=== PATIENT | male | born 1995 | race African-American/Black ===

== ENCOUNTER 2020-03-13 05:21 | Inpatient (IN) ==
[2020-03-13] MEDS ORDERED: DIPHTHERIA/TETANUS ADULT VACCINE 0.5 ML SYRINGE IM ONE (05:34)
[2020-03-13] MEDS ORDERED: ONDANSETRON 4 MG/2 ML VIAL IV ONE (06:22)
[2020-03-13] MEDS ORDERED: SODIUM CHLORIDE 0.9% 1,000 ML IV STA ×2 (06:22→07:36)
[2020-03-13] MEDS ORDERED: DIPH/TET/ACEL PERT BOOSTER VACCINE 0.5 ML VIAL IM ONE (06:22)
[2020-03-13] MEDS ORDERED: MORPHINE 4 MG/1 ML VIAL IV ONE (06:22)
[2020-03-13] MEDS ORDERED: LIDOCAINE MPF 1% /EPI 30 ML VIAL ONE (06:30)
[2020-03-13 06:38] LABS: INR 1.1; PT Patient Result 11.4 SECS (9.8-11.9)
[2020-03-13 07:06] LABS: Alanine Aminotransferase 20 U/L (16-61); Albumin 4.3 G/DL (3.4-5.0); Alkaline Phosphatase 47 U/L (45-117); Aspartate Amino Transferase 17 U/L (0-37); Blood Urea Nitrogen 12 MG/DL (7-18); Calcium 9.2 MG/DL (8.5-10.1); Carbon Dioxide 24 MMOL/L (21-32); Estimated Glom Filtration Rate 92 ML/MIN; Glucose 92 MG/DL (74-106); Osmolality,Calculated 274.7 MOS/KG (273-304); Potassium 4.2 MMOL/L (3.5-5.1); Sodium 138 MMOL/L (136-145); Troponin I < 0.015 NG/ML (0.00-0.045)
[2020-03-13 07:07] LABS: Basophils % 0.2 % (0.0-0.8); Eosinophils % 0.2 % (0.00-10.9); Hematocrit 47.8 VOL% (42.0-52.0); Immature Granulocytes % 0.5 %; Immature Granulocytes Absolute 0.09 #; Lymphocytes % 5.9 % (21.2-54.2); Mean Corpuscular HGB Conc 31.4 GM/DL (32-36); Mean Corpuscular Volume 92.3 FL (87-102); Mean Platelet Volume 12.5 FL (9.6-12.0); Monocytes % 6.7 % (1.7-12.7); Neutrophils % 86.5 % (38.7-73.9); Platelet Count 190 T/CUMM (130-400); Red Blood Count 5.18 MC/CUMM (3.8-5.5); Red Cell Distribution Width 14.7 % (9.3-17.3); White Blood Count 16.4 T/CUMM (4-12)
[2020-03-13 07:29] LABS: Platelet Estimate Adequate
[2020-03-13] MEDS ORDERED: BISACODYL 5 MG TABLET PO PRN (08:44)
[2020-03-13] MEDS ORDERED: ALBUTEROL/IPRATROPIUM 3 ML NEB RESP TX PRN (08:44)
[2020-03-13] MEDS ORDERED: IBUPROFEN 400 MG TABLET PO PRN (08:44)
[2020-03-13] MEDS ORDERED: ONDANSETRON 4 MG/2 ML VIAL IV PRN (08:44)
[2020-03-13] MEDS: PANTOPRAZOLE 40 MG TABLET PO SCH (11:40)
[2020-03-13] MEDS: LACTATED RINGERS 1,000 ML IV SCH (11:49)
[2020-03-13] MEDS: KETOROLAC 10 MG TABLET PO PRN (21:05)
[2020-03-14] MEDS: LACTATED RINGERS 1,000 ML IV SCH ×3 (00:30→16:37)
[2020-03-14] MEDS: HYDROmorphone 2 MG/1 ML VIAL IV PRN ×3 (03:42→16:38)
[2020-03-14] MEDS: KETOROLAC 10 MG TABLET PO PRN ×2 (04:33→12:38)
[2020-03-14 07:06] LABS: Basophils % 0.2 % (0.0-0.8); Eosinophils % 0.4 % (0.00-10.9); Hematocrit 42.3 VOL% (42.0-52.0); Immature Granulocytes % 0.5 %; Immature Granulocytes Absolute 0.05 #; Lymphocytes # 1.7 10*3/uL (1.4-4.0); Lymphocytes % 16.5 % (21.2-54.2); Mean Corpuscular HGB Conc 30.7 GM/DL (32-36); Mean Corpuscular Volume 94.8 FL (87-102); Mean Platelet Volume 12.2 FL (9.6-12.0); Monocytes % 11.5 % (1.7-12.7); Neutrophils % 70.9 % (38.7-73.9); Platelet Count 176 T/CUMM (130-400); Red Blood Count 4.46 MC/CUMM (3.8-5.5); Red Cell Distribution Width 14.8 % (9.3-17.3)
[2020-03-14 08:02] LABS: Albumin 3.6 G/DL (3.4-5.0); Bilirubin,Total 1.7 MG/DL (0.2-1.0); Calcium 8.4 MG/DL (8.5-10.1); Osmolality,Calculated 274.5 MOS/KG (273-304); Total Protein 6.8 G/DL (6.4-8.3)
[2020-03-14] MEDS: PANTOPRAZOLE 40 MG TABLET PO SCH (09:10)
[2020-03-15] MEDS: LACTATED RINGERS 1,000 ML IV SCH (03:20)
[2020-03-15] MEDS: KETOROLAC 10 MG TABLET PO PRN (08:58)
[2020-03-15] MEDS: PANTOPRAZOLE 40 MG TABLET PO SCH (08:59)
[2020-03-16] MEDS: LACTATED RINGERS 1,000 ML IV SCH (03:05)
[2020-03-16 07:55] VITALS: BP 156/95
[2020-03-16] MEDS: PANTOPRAZOLE 40 MG TABLET PO SCH (10:43)
== END 2020-03-16 15:47 | DRG 200 ==
LOC: EDUNIT# → EDBD → N.ED 05:21 → N.EDINP 08:44 → N.3W 09:40
PROVIDERS: ADMIT Student in an Organized Health Care Education/Training Program; ATTEND Student in an Organized Health Care Education/Training Program